=== PATIENT | female | born 1960 | race Caucasian/White ===

== ENCOUNTER 2019-02-09 17:10 | Inpatient (IN) ==
[2019-02-09] MEDS ORDERED: NS 1,000 ML IV ONE (18:13)
[2019-02-09] MEDS ORDERED: ZOFRAN IV ONE (18:13)
[2019-02-09 18:34] LABS: BASO# 0.02 X1000 (0.0-0.2); BASO% 0.2 % (0.0-0.8); EOS# 0.09 X1000 (0.0-0.7); EOS% 0.8 % (0.0-10.0); HEMATOCRIT 45.7 % (37.0-47.0); HEMOGLOBIN 14.9 g/dL (12.0-16.0); LYMPH# 2.12 X1000 (1.2-3.4); LYMPH% 18.8 % (20.5-51.1); MCH 30.9 PG (27-31); MCHC 32.6 g/dL (33-37); MCV 94.8 FL (81-99); MONO# 0.78 X1000 (0.11-0.59); MONO% 6.9 % (1.7-9.3); MPV 9.4 FL (7.4-10.4); NEUT# 8.25 X1000 (1.4-6.5); NEUT% 73.3 % (42.2-75.2); PLT 361 X1000 (130-400); RBC 4.82 XMIL (4.2-5.4); RDW 13.7 % (11.5-14.5); WBC 11.26 X1000 (4.8-10.8)
[2019-02-09 18:49] LABS: AGAP 18; ALB/GLOB RATIO 1.7; ALBUMIN 4.3 g/dL (3.5-5.0); ALKALINE PHOSPHATASE 55 U/L (32-104); BUN 19 mg/dL (8-22); CALCIUM 9.7 mg/dL (8.8-10.2); CHLORIDE 93 mmol/L (98-107); COSMO 272; CREATININE 0.9 mg/dL (0.5-0.9); ESTIMATED GFR > 60; GLUCOSE 131 mg/dL (70-104); GOT 19 U/L (10-30); GPT 15 U/L (10-36); LIPASE 17 U/L (13-60); POTASSIUM 3.9 mmol/L (3.5-5.1); SODIUM 134 mmol/L (136-145); TCO2 23 mmol/L (25-35); TOTAL BILIRUBIN 0.47 mg/dL (0.20-1.00); TOTAL PROTEIN 6.8 g/dL (6.3-8.3)
--- NOTE | 2019-02-09 19:03 | PROVIDER DOCUMENTATION ---
This chart was entered by Alee Patrick Scribe, acting as scribe for Jacki Dickey MD. HPI-Abdominal Pain/GI Problem - General Source: patient - History of Present Illness-ABD Nature of Presenting Problems: 59 yowf presents w/ to er w/cc nvd, cramping abd pain, diaphoresis, and poor appetite x 3 days. pt had 1 episode of diarrhea today but has had multiple vomiting episodes since becoming worse last night w/yellow emesis and cannot keep food down. pt ate eggs this am and vomited. pt became dizzy/lightheaded last night. pt denies urinary symptoms and fever. sts pt has hx of sx at [facility] and had 40% of stomach removed. 2 sx in [place] w/Dr. Zambrano- exploratory sx to remove scar tissue from prev sx around small intestine and gall bladder removal recently in Jan. no hx of dm or htn. Abdominal Pain Onset Location: reports: RUQ, LUQ Pain Radiation: reports: no radiation Quality of Pain: reports: cramping Severity in ED: reports: mild Onset/Duration: reports: 3 days ago Timing: reports: still present Activities at Onset: reports: none Modifying Factors: improves with: eating (worsens) Associated Symptoms: reports: diarrhea (x1), nausea, vomiting. denies: fever/chills, genitourinary problems Dark Stools Present?: reports: none noticed Rectal Bleeding: reports: none Emesis Description: reports: other (yellow) Bruising or Bleeding Gums?: No <Jacki Dickey - Last Filed: 02/09/19 19:03> <Reynaldo Alexander - Last Filed: 02/09/19 21:21> - General Chief Complaint: Vomiting Stated Complaint: VOMITING Time Seen by Provider: 02/09/19 17:59 Allergies/Adverse Reactions: Patient Allergies Allergy/AdvReac Type Severity Reaction Status Date / Time No Known Allergies Allergy Verified 11/24/18 10:43 Home Medications: Home Medication List Medication Instructions Recorded Confirmed Last Taken Type Celecoxib 200 mg PO DAILY 09/04/17 02/09/19 11/23/18 History Desvenlafaxine E.r. [Pristiq ER] 100 mg PO DAILY 09/04/17 02/09/19 11/23/18 History Gabapentin 600 mg PO TID 09/04/17 02/09/19 11/23/18 History Topiramate 100 mg PO BID 09/04/17 02/09/19 11/23/18 History Levothyroxine [Synthroid] 100 microgm PO DAILY 09/17/18 02/09/19 11/23/18 History Fanshawe Carbonate 300 mg PO QHS 09/17/18 02/09/19 11/23/18 History Oxycodone HCl/Acetaminophen 1 ea PO Q6H PRN 09/17/18 02/09/19 11/23/18 History [Oxycodon-Acetaminophen 7.5-325] Quetiapine Fumarate 100 mg PO QHS PRN 09/17/18 02/09/19 11/23/18 History Trazodone [Desyrel] 100 mg PO QHS PRN 09/17/18 02/09/19 11/23/18 History Review of Systems - Adult - REVIEW OF SYSTEMS - ADULT Constitutional: reports: no symptoms reported. denies: chills, fever, fatique Eyes: reports: no symptoms reported Ears, Nose, Mouth & Throat: reports: no symptoms reported Cardiovascular: reports: no symptoms reported Respiratory: reports: no symptoms reported Gastrointestinal: reports: see HPI, abdominal pain, diarrhea, nausea, poor appetite, vomiting. denies: difficulty swallowing, frequent heartburn, rectal bleeding Genitourinary: reports: no symptoms reported. denies: dysuria, discharge, flank pain, hematuria Musculoskeletal: reports: no symptoms reported Integumentary: reports: no symptoms reported Neurological: reports: see HPI, dizziness/vertigo. denies: loss of balance, syncope, tremors Psychiatric: reports: no symptoms reported Endocrine: reports: see HPI, excessive sweating. denies: change in skin pigment, goiter, cold intolerance Hematologic/Lymphatic: reports: no symptoms reported Allergic/Immunologic: reports: no symptoms reported All Other Systems: Reviewed and Negative <Jacki Dickey - Last Filed: 02/09/19 19:03> Past History - Adult - PAST MEDICAL HISTORY-ADULT Review of Records: reports: Nursing Assessment Review, Medications Reviewed, Social history reviewed & non-contributory. Major Childhood Illnesses: reports: denies history Cardiovascular: reports: denies history Respiratory: reports: denies history Gastrointestinal: reports: denies history Obstetrical/Gynecological: reports: denies history Genitourinary: reports: denies history Musculoskeletal: reports: denies history Neurological: reports: denies history Endocrine/Immune: reports: thyroid disorder Other Conditions: reports: denies history - PRIOR SURGERIES/PROCEDURES Surgical/Procedure History: reports: recent surgery, cholecystectomy, bowel surgery, back/neck, other (abdominal sx 40% pylorus removed) - IMMUNIZATION STATUS Childhood Immunizations: See Nurse Assessment Flu Vaccine: See Nurse Assessment - FAMILY HISTORY Family History: reviewed, not pertinent - SOCIAL HISTORY Smoking: other (former smoker) Substance Use: none/never <Keli,Aslam A. - Last Filed: 02/09/19 19:03> Physical Exam-General - PHYSICAL EXAM-ADULT Initial Vital Signs Reviewed: Yes - CONSTITUTIONAL General Appearance: alert, no apparent distress. negative: lethargic, slow to respond, obtunded - EYES Eyes: PERRL/EOMI, pink conjunctivae - HEAD, EARS, NOSE, MOUTH & THROAT HENMT: normocephalic/atraumatic, moist mucous membranes, normal ENT inspection - NECK Neck: non-tender, full range of motion, supple, normal inspection - RESPIRATORY Respiratory: chest non-tender, lungs clear, normal breath sounds - CARDIOVASCULAR Cardiovascular: normal peripheral pulses, regular rate, rhythm - GASTROINTESTINAL (ABDOMEN) Abdominal Exam: soft, no organomegaly, no pulsatile mass, abnormal bowel sounds (increased bowel sounds), guarding (gen abd especially in LUQ, RUQ), tenderness (general diffuse abd to palp). negative: normal bowel sounds, non tender, distended, rigid, rebound - LYMPHATIC Lymphatic: no adenopathy - MUSCULOSKELETAL Back Exam: normal inspection, no CVA tenderness, no vertebral tenderness Extremity: normal range of motion, non-tender, normal inspection Peripheral Pulses: radial (R): 2+, radial (L): 2+ - SKIN Integumentary: normal color, normal turgor, warm/dry. negative: diaphoresis - NEUROLOGIC Neurologic: grossly normal, no motor/sensory deficits - PSYCHIATRIC Psych/Mental Status: normal mood/affect, normal thought content, normal thought process, oriented x 3 <Keli,Aslam A. - Last Filed: 02/09/19 19:03> Progress - PLAN OF CARE/RESULTS Progress/Plan/Lab Results: Vital Signs - 8 hr 11/02/19 17:18 Temperature 97.9 F Pulse Rate 103 H Respiratory Rate 18 Blood Pressure 120/78 O2 Sat by Pulse Oximetry 95 Orders Category Date Time Status Saline Loc DIRECTED Care 02/09/19 18:11 Active NPO Diet 02/09/19 18:[address] ABD/PELVIS W/PO AND IV CON [CT] Stat Exams 02/09/19 18:11 Ordered CBC WITH ELECTRONIC DIFF [HEME] Stat Lab 02/09/19 18:11 Uncollected COMPREHENSIVE METABOLIC PANEL [CHEM] Stat Lab 02/09/19 18:11 Uncollected LIPASE [CHEM] Stat Lab 02/09/19 18:11 Uncollected URINALYSIS W/POSS RFLX CULT [URINALYSIS] Stat Lab 02/09/19 18:11 Uncollected Result Diagrams: 02/09/19 17:43 02/09/19 17:43 - CHANGE OF SHIFT REPORT (ED Provider) 1 Report Given and Care Transferred to:: Dr. Shelton Time of Transfer: 19:00 Items Pending: CT/MRI Results, Physician Consult/Arrival <Jacki Dickey - Last Filed: 02/09/19 19:03> - PLAN OF CARE/RESULTS Progress/Plan/Lab Results: Vital Signs - 8 hr 02/09/19 17:18 02/09/19 17:35 02/09/19 18:11 Temperature 97.9 F Pulse Rate 103 H Respiratory Rate 18 Blood Pressure 120/78 112/82 126/86 O2 Sat by Pulse Oximetry 95 95 95 Laboratory Results - last 24 hr 02/09/19 02/09/19 17:43 17:43 WBC 11.26 H RBC 4.82 Hgb 14.9 Hct 45.7 MCV 94.8 MCH 30.9 MCHC 32.6 L RDW Std Deviation 13.7 Plt Count 361 MPV 9.4 Immature Gran % (Auto) 0.0 Neut % (Auto) 73.3 Lymph % (Auto) 18.8 L Finney % (Auto) 6.9 Eos % (Auto) 0.8 Baso % (Auto) 0.2 Immature Gran # (Auto) 0.00 Neut # (Auto) 8.25 H Lymph # (Auto) 2.12 Finney # (Auto) 0.78 H Eos # (Auto) 0.09 Baso # (Auto) 0.02 Sodium 134 L Potassium 3.9 Chloride 93 L Carbon Dioxide 23 L Anion Gap 18 BUN 19 Creatinine 0.9 Estimated GFR/1.73 m2 > 60 BUN/Creatinine Ratio 21 Glucose 131 H Calculated Osmolality 272 Calcium 9.7 Total Bilirubin 0.47 AST 19 ALT 15 Alkaline Phosphatase 55 Total Protein 6.8 Albumin 4.3 Globulin 2.5 Albumin/Globulin Ratio 1.7 Lipase 17 Orders Category Date Time Status Saline Loc DIRECTED Care 02/09/19 18:11 Active NPO Diet 02/09/19 18:[address] ABD/PELVIS W/PO AND IV CON [CT] Stat Exams 02/09/19 18:11 Completed CBC WITH ELECTRONIC DIFF [HEME] Stat Lab 02/09/19 17:43 Completed COMPREHENSIVE METABOLIC PANEL [CHEM] Stat Lab 02/09/19 17:43 Completed LIPASE [CHEM] Stat Lab 02/09/19 17:43 Completed URINALYSIS W/POSS RFLX CULT [URINALYSIS] Stat Lab 02/09/19 18:11 Uncollected 0.9% Sodium Chloride Inj [Ns] 1,000 ml Med 02/09/19 18:13 Discontinued IV 999 mls/hr Ondansetron [Zofran] Med 02/09/19 18:13 Discontinued 4 mg IV NOW ONE Promethazine [Phenergan] Med 02/09/19 19:44 Discontinued 12.5 mg IV NOW ONE Sodium Chloride 0.9% Med 02/09/19 19:44 Discontinued 10 ml INJ NOW ONE Result Diagrams: 02/09/19 17:43 02/09/19 17:43 - CONSULTS/PCP/HOSPITALIST Notification #1 *Consult/PCP/Hospitalist*: Dr. Uriostegui Time Discussed: 21:20 Consult Disposition: Will see in ED - CHANGE OF SHIFT REPORT (ED Provider) 1 Report Given and Care Transferred to:: Dr. Alexander <Reyanldo Alexander - Last Filed: 02/09/19 21:21> Departure - Critical Care Note This patient required my direct & personal management of CC.: No <Jacki Dickey - Last Filed: 02/09/19 19:03> - Departure Date of Disposition Decision: 02/09/19 Time of Disposition Decision: 21:20 Certified Medical Emergency: Emergent - Critical Care Note This patient required my direct & personal management of CC.: No <Reynaldo Alexander - Last Filed: 02/09/19 21:21> - Departure DIAGNOSIS: Small bowel obstruction Disposition: ADMITTED INPATIENT 09 Condition: Stable Referrals and Follow-Ups: Carly Ware CRNP [Primary Care Provider] - Attestation - Physician/ MIHIR Attestation Patient care was provided by Advanced Practice Provider:: No The physician spent face to face time with patient:: Yes Advanced Practice Provider documentation review:: Supervising physician onsite and consulted in the evaluation and care of this patient. The physician did have a face to face encounter with the patient. <Jacki Dickey - Last Filed: 02/09/19 19:03> - Physician/ MIHIR Attestation Patient care was provided by Advanced Practice Provider:: No The physician spent face to face time with patient:: Yes Advanced Practice Provider documentation review:: Supervising physician onsite and consulted in the evaluation and care of this patient. The physician did have a face to face encounter with the patient. <Reynaldo Alexander - Last Filed: 02/09/19 21:21> This chart was documented by the indicated scribe, (Alee Patrick Scribe) and accurately reflects the services I performed and decisions made by me, Jacki Dickey MD, as attested by the provider's signature.
[2019-02-09] MEDS ORDERED: SODIUM CHLORIDE 0.9% INJ ONE (19:44)
[2019-02-09] MEDS ORDERED: PHENERGAN IV ONE (19:44)
--- NOTE | 2019-02-09 20:08 | Diag Imaging Result Doc PS360 ---
EXAM: CT ABD/PELVIS W/PO AND IV CON - 02/09/2019 HISTORY: abd pain, hx of SBO/adhesions TECHNIQUE: CT abdomen/pelvis with oral and intravenous contrast COMPARISON: 11/24/2018 FINDINGS: The visualized lung bases appear clear except for slight dependent atelectasis. There are no substantial abnormalities of the liver, spleen, adrenal glands, or pancreas identified. The gallbladder surgically absent. The bilateral kidneys enhance homogeneously. There is no hydronephrosis. There are no substantially enlarged lymph nodes identified. There is dilatation of proximal small bowel up to 5 cm. The distal small bowel is nondistended. There are postsurgical changes in small bowel at the right lower quadrant, which appears represent the transition point. There is passage of oral contrast through this area into the nondistended distal small bowel, however. There is a large amount retained fecal debris in the colon. There is no evidence of diverticulitis. There is no free air or abscess identified. There is a small amount of free fluid in the pelvis. IMPRESSION: Apparent partial small bowel obstruction with dilated proximal small bowel. There is possible transition in the area of previous surgery at the right lower quadrant. There is passage of oral contrast through this area into the nondistended distal small bowel. Substantial constipation. No abscess. No free air. Small amount of free fluid in pelvis. This exam was performed using automated exposure control, adjustment of mA or kV according to patient size, and/or use of iterative reconstruction technique. Electronically signed by Abe Post 02/09/2019 8:06 PM
[2019-02-09 21:34] LABS: URINE SOURCE CLEAN CATCH
[2019-02-09 21:37] LABS: BILIRUBIN URINE NEGATIVE (NEGATIVE); BLOOD URINE NEGATIVE (NEGATIVE); COLOR STRAW; GLUCOSE URINE NEGATIVE (NEGATIVE); KETONE URINE NEGATIVE (NEGATIVE); LEUKOCYTES URINE NEGATIVE (NEGATIVE); NITRITE URINE NEGATIVE (NEGATIVE); PROTEIN URINE NEGATIVE (NEGATIVE); SP GRAVITY URINE 1.037; TURBIDITY URINE CLEAR (CLEAR); UROBILINOGEN URINE NORMAL (NORMAL)
[2019-02-09 21:38] LABS: UR EPITHELIAL CELLS <10 /HPF (<10); URINE BACTERIA NEGATIVE /HPF; URINE RBC <10 /HPF (<10); URINE WBC <10 /HPF (<10)
[2019-02-10] MEDS ORDERED: SEROQUEL PO PRN (00:30)
[2019-02-10] MEDS: PROTONIX IV SCH ×2 (00:40→23:05)
[2019-02-10] MEDS: NS 1,000 ML IV SCH ×2 (00:40→14:05)
--- NOTE | 2019-02-10 01:22 | HISTORY AND PHYSICAL ---
CHIEF COMPLAINT: Nausea, vomiting for about 3 days. HISTORY OF PRESENT ILLNESS: Ms Sonam Mojica is a 59-year-old female who has a history of hypothyroidism, depression, anxiety disorder, bipolar disorder. She presents to the hospital because of nausea, vomiting for about 3 days, along with abdominal pain. This is localized in the epigastric area. No diarrhea. She had a CT of the abdomen and pelvis done at time of her presentation, which showed evidence of apparent partial small-bowel obstruction with dilated proximal small bowel. There is a possible transition in the area of a previous surgery of the right lower quadrant. The patient was seen and evaluated in the ER and she will now be admitted to the floor for further management. The patient did have exploratory laparotomy, with lysis of adhesions, along with small-bowel resection with stapled [id number] functional end-to-end anastomosis. This was done in August 2017 and the indication was that of a bowel obstruction. The patient also had reduction and repair of internal hernia with volvulus during that encounter. PAST MEDICAL HISTORY: 1. Patient has a history of constipation. 2. Pyloric stenosis. 3. Hypothyroidism. 4. Depression. 5. Anxiety disorder. 6. Bipolar disorder. 7. History of rectal prolapse. PAST SURGICAL HISTORY: 1. Partial gastrectomy for pyloric stenosis. 2. Hysterectomy. 3. Bilateral tubal ligation. 4. Unspecified transabdominal surgery for rectal polyps. 5. Previous breast augmentation. 6. The patient also had exploratory laparotomy done for bowel obstruction in 2017. SOCIAL HISTORY: No history of cigarette smoking. No alcohol or drug use. ALLERGIES: No known drug allergies. FAMILY HISTORY: Noncontributory. MEDICATIONS: 1. Celebrex 200 mg p.o. once a day. 2. Pristiq 100 mg p.o. daily. 3. Gabapentin 600 mg p.o. 3 times a day. 4. Topamax 100 mg p.o. twice a day. 5. Levothyroxine 100 mcg p.o. daily. 6. [place] 300 mg p.o. at bedtime. 7. Oxycodone/acetaminophen 1 p.o. q.6 hours p.r.n. 8. Seroquel 100 mg p.o. at bedtime. 9. Trazodone 100 mg p.o. at bedtime. REVIEW OF SYSTEMS: Constitutional: Question no fevers. Eyes: No blurred vision. [employer] CH[employer]F: Has headaches. ENT: No sinus problems. No hearing loss. Cardiovascular: No chest pain. Respiratory: No cough. Genitourinary: No dysuria. Psychiatric: She has anxiety with depression. Dermatology: No skin lesions. Hematology: No bleeding problems. Musculoskeletal: Has back pain. Endocrinology: Has thyroid disease. Allergic/Immunologic: No symptoms suggestive of allergic rhinitis. PHYSICAL EXAMINATION: VITAL SIGNS: On admission, Temperature 97.6 degrees, pulse 103, respiratory rate is 18, blood pressure 120/78, oxygen saturation is 95%. HEENT: Patient is atraumatic, normocephalic. She is anicteric. Extraocular movements intact. No oral lesions noted. NECK: No lymphadenopathy or thyromegaly. CARDIOVASCULAR: S1, S2. RESPIRATORY SYSTEM: Has evidence of good air entry bilaterally. ABDOMEN: Soft. She does have some tenderness in the epigastric area. No masses felt. EXTREMITIES: No evidence of edema. CENTRAL NERVOUS SYSTEM: No obvious focal deficit noted. LABORATORY DATA: WBC 11.26, hematocrit is 45.7, with a platelet count of 361,000. Sodium is 134, potassium is 3.9, chloride is 93, bicarb is 20, BUN is 19, creatinine 0.9. Glucose 131. CT scan of the abdomen and pelvis shows evidence of apparent partial small-bowel obstruction with dilated proximal small bowel. ASSESSMENT AND PLAN: 1. Partial small-bowel obstruction. Maintain patient NPO as well as IV fluids. Repeat abdominal imaging in the morning. Consult with Surgery. 2. Hypothyroidism. Check thyroid function test. Continue levothyroxine. 3. History of anxiety and depression as well as bipolar disorder. Continue with psychiatric medications. Check lithium level. 4. Deep vein thrombosis prophylaxis. Sequential compression devices. 5. Gastrointestinal prophylaxis. Proton pump inhibitor. cc: Phillip Uriostegui MD
[2019-02-10] MEDS: SYNTHROID PO SCH (06:14)
--- NOTE | 2019-02-10 07:29 | GENERAL SURGERY CONSULTATION ---
DATE: 02/10/2019 REQUESTING PHYSICIAN: The hospitalist. REASON FOR CONSULTATION: Bowel obstruction. HISTORY OF PRESENT ILLNESS: A 59-year-old female, well known to me, who had a history of nausea and vomiting for several days prior to presentation. She was seen in the emergency department, had a CT scan that showed potential for bowel obstruction. Since admission, she is feeling better, and is wanting to try some liquids. She has had a bowel movement, passed gas, and is not hurting like she was. PAST MEDICAL HISTORY: Includes: 1. History of constipation. 2. Pyloric stenosis. 3. Hypothyroidism. 4. Depression. 5. Anxiety disorder. 6. Bipolar disorder. 7. History of rectal prolapse. PAST SURGICAL HISTORY: Includes: 1. Partial gastrectomy for pyloric stenosis. 2. Hysterectomy. 3. Bilateral tubal ligation. 4. Exploratory laparotomy. 5. Cholecystectomy. SOCIAL HISTORY: Denies alcohol, tobacco, or illicit drugs. ALLERGIES: None. HOME MEDICATIONS: Full list reviewed. FAMILY HISTORY: Reviewed with the patient and noncontributory. REVIEW OF SYSTEMS: Full 14 systems were reviewed and negative, except those specified in the HPI. PHYSICAL EXAMINATION: Vital Signs: The patient is currently afebrile. Her vital signs are stable. General: No acute distress. Alert, interactive, female who looks stated age. HEENT: Normocephalic, atraumatic. Pupils equal, round, reactive to light. Mucous membranes moist. Oropharynx benign. Neck: Supple. Trachea midline. Cardiovascular: Regular rate and rhythm. Lungs: Grossly clear. Abdomen: Soft, nontender, nondistended. Extremities: Moves all extremities. Neurologic: Grossly intact. Skin: No signs of jaundice. Vascular: All extremities perfused. IMAGING AND LABORATORY DATA: Laboratory reviewed. White blood cell count slightly elevated. Remainder of labs reviewed. CT scan independently reviewed, and radiology report reviewed. ASSESSMENT AND PLAN: A 59-year-old female with bowel obstruction. Bowel obstruction. At this time, will try to manage her nonoperatively. I think she is already improving. Will put her on a clear liquid diet, and see how she does. She is already feeling better. cc: Manan Zambrano MD
[2019-02-10 08:07] LABS: BASO# 0.02 X1000 (0.0-0.2); BASO% 0.3 % (0.0-0.8); EOS# 0.11 X1000 (0.0-0.7); EOS% 1.5 % (0.0-10.0); HEMATOCRIT 38.6 % (37.0-47.0); HEMOGLOBIN 12.1 g/dL (12.0-16.0); LYMPH% 37.7 % (20.5-51.1); MCH 30.8 PG (27-31); MCHC 31.3 g/dL (33-37); MCV 98.2 FL (81-99); MONO# 0.59 X1000 (0.11-0.59); MONO% 8.2 % (1.7-9.3); NEUT# 3.75 X1000 (1.4-6.5); NEUT% 52.3 % (42.2-75.2); PLT 297 X1000 (130-400); RBC 3.93 XMIL (4.2-5.4); RDW 13.7 % (11.5-14.5); WBC 7.17 X1000 (4.8-10.8)
[2019-02-10 08:21] LABS: AGAP 12; ALB/GLOB RATIO 1.4; ALBUMIN 3.3 g/dL (3.5-5.0); ALKALINE PHOSPHATASE 45 U/L (32-104); BUN 11 mg/dL (8-22); CALCIUM 8.6 mg/dL (8.8-10.2); CHLORIDE 104 mmol/L (98-107); COSMO 281; CREATININE 0.7 mg/dL (0.5-0.9); ESTIMATED GFR > 60; GLUCOSE 100 mg/dL (70-104); GOT 16 U/L (10-30); GPT 12 U/L (10-36); POTASSIUM 3.6 mmol/L (3.5-5.1); SODIUM 141 mmol/L (136-145); TCO2 25 mmol/L (25-35); TOTAL BILIRUBIN 0.46 mg/dL (0.20-1.00); TOTAL PROTEIN 5.6 g/dL (6.3-8.3)
--- NOTE | 2019-02-10 08:21 | Diag Imaging Result Doc PS360 ---
EXAM: ABDOMEN FLAT/UPRIGHT 02/10/2019 HISTORY: sbo TECHNIQUE: Flat and upright abdomen COMMENT: There is a large amount of stool present in the colon particularly in the descending colon. There are some distended gas-filled small bowel loops in the left upper quadrant and midabdomen with air-fluid levels. There are numerous staple lines in the upper abdomen particularly in the left upper quadrant. Compared to 09/06/2017 the quantity of stool in the colon is much greater. Gaseous dilatation of small bowel loops was present at that time. IMPRESSION: The possibility of partial small bowel obstruction cannot be excluded. This may be exacerbated by constipation, which appears to be chronic as it was present at the time the CT of 11/24/2018 as well as the more recent study on 02/09/2019. Electronically signed by Ry Judd 02/10/2019 8:19 AM
[2019-02-10 08:44] LABS: FREE T4 1.03 ng/dL (0.93-1.70); TSH 0.49 uIUmL (0.27-4.20)
[2019-02-10] MEDS: NEURONTIN PO SCH ×3 (10:21→18:25)
[2019-02-10] MEDS: TOPAMAX PO SCH ×2 (10:22→21:01)
[2019-02-10] MEDS: ZOFRAN IV PRN (10:23)
[2019-02-10] MEDS: PRISTIQ ER PO SCH (10:54)
[2019-02-10] MEDS ORDERED: MORPHINE IV PRN (11:49)
--- NOTE | 2019-02-10 16:44 | PROGRESS NOTE ---
DATE: 02/10/2019 SUBJECTIVE: Patient reports still having what looks like diarrhea and mild abdominal cramping as well. OBJECTIVE: Vital Signs: Temperature 98.2 degrees, heart rate 84, respiratory rate 18, blood pressure 110/66, O2 saturation 97% on room air. General Examination: This is a 59-year-old female lying in bed, in no acute distress. Cardiovascular: S1, S2 heard. No murmurs, gallops, or rubs. Regular rate and rhythm. Respiratory: Clear bilaterally to auscultation. No work of breathing or using accessory muscles. Abdomen: Soft. Abdomen a little bit tender in the epigastric area. Bowel sounds present. No organomegaly. Extremities: No clubbing, cyanosis, or edema. Peripheral pulses present in both legs. Neurological: Patient alert oriented x3. Moves four extremities. LABORATORY DATA: Reviewed. ASSESSMENT AND PLAN: 1. Partial small bowel obstruction. The patient is feeling better. The patient has been evaluated by General Surgery. They are okay to placing this patient on clear liquid diet. They do not think she is going to need any surgical approach at this time. 2. Hypothyroidism. Will continue home medications. 3. History of anxiety and depression and bipolar disorder. The patient will continue with psychiatric medications. 4. Disposition. We will check another x-ray tomorrow and if everything looks good patient can be discharged if she is tolerating diet. cc: Gerardo Aguila MD
[2019-02-10] MEDS: LITHIUM CARBONATE PO SCH (21:01)
[2019-02-10] MEDS: DESYREL PO PRN (21:01)
[2019-02-10] MEDS: SODIUM CHLORIDE 0.9% INJ SCH (23:05)
[2019-02-11] MEDS: NS 1,000 ML IV SCH ×2 (04:21→16:39)
[2019-02-11] MEDS: SYNTHROID PO SCH (06:39)
[2019-02-11 07:34] LABS: BASO# 0.02 X1000 (0.0-0.2); BASO% 0.4 % (0.0-0.8); EOS# 0.09 X1000 (0.0-0.7); EOS% 1.7 % (0.0-10.0); HEMATOCRIT 39.2 % (37.0-47.0); HEMOGLOBIN 12.3 g/dL (12.0-16.0); LYMPH# 1.55 X1000 (1.2-3.4); LYMPH% 29.1 % (20.5-51.1); MCH 30.9 PG (27-31); MCHC 31.4 g/dL (33-37); MCV 98.5 FL (81-99); MONO# 0.34 X1000 (0.11-0.59); MONO% 6.4 % (1.7-9.3); MPV 9.2 FL (7.4-10.4); NEUT# 3.32 X1000 (1.4-6.5); NEUT% 62.4 % (42.2-75.2); PLT 262 X1000 (130-400); RBC 3.98 XMIL (4.2-5.4); RDW 13.2 % (11.5-14.5); WBC 5.32 X1000 (4.8-10.8)
[2019-02-11 07:55] LABS: AGAP 15; BUN 9 mg/dL (8-22); CALCIUM 8.2 mg/dL (8.8-10.2); CHLORIDE 108 mmol/L (98-107); COSMO 282; CREATININE 0.7 mg/dL (0.5-0.9); ESTIMATED GFR > 60; GLUCOSE 76 mg/dL (70-104); POTASSIUM 3.7 mmol/L (3.5-5.1); SODIUM 143 mmol/L (136-145); TCO2 20 mmol/L (25-35)
--- NOTE | 2019-02-11 08:01 | GENERAL SURGERY PROGRESS NOTE ---
DATE: 02/11/2019 SUBJECTIVE: Patient is doing okay. She said she had diarrhea with her clear liquid diet, but did not report any nausea. OBJECTIVE: Vital Signs: Patient is currently afebrile. Her vital are signs stable. General: No acute distress. HEENT: Normocephalic, atraumatic. Pupils equal, round, and react to light. Mucous membranes moist. Oropharynx benign. Neck: Supple. Trachea midline. Cardiovascular: Regular rate and rhythm. Lungs: Grossly clear. Abdomen: Soft, nontender, and nondistended. Extremities: Moves all extremities. Neurologic: Grossly intact. Skin: No signs of jaundice. Vascular: All extremities perfused. LABORATORY: Reviewed from yesterday. Abdominal film yesterday was more consistent with constipation. ASSESSMENT AND PLAN: A 59-year-old female with partial bowel obstruction. At this time, she is having bowel movements, and she seemed to tolerate her liquids, although her most pressing issue with it was that she had diarrhea. We will try to put her on a GI soft diet to see if more bulk slows down things, but I think some of her main issues may be constipation so may need to get Gastroenterology involved again to evaluate for her consistent bowel regimen. We will continue to follow. cc: Manan Zambrano MD
[2019-02-11] MEDS: PRISTIQ ER PO SCH (09:44)
[2019-02-11] MEDS: NEURONTIN PO SCH ×3 (09:44→20:36)
[2019-02-11] MEDS: TOPAMAX PO SCH ×2 (09:44→20:36)
[2019-02-11] MEDS: ZOFRAN IV PRN ×2 (16:39→21:22)
[2019-02-11] MEDS ORDERED: PHENERGAN IV ONE (18:13)
[2019-02-11] MEDS ORDERED: SODIUM CHLORIDE 0.9% INJ ONE (18:13)
[2019-02-11] MEDS ORDERED: SODIUM CHLORIDE 0.9% INJ PRN (18:13)
--- NOTE | 2019-02-11 18:38 | PROGRESS NOTE ---
DATE: 02/11/2019 SUBJECTIVE: Patient has multiple complaints. She has abdominal pain. She has nausea. She has abdominal distention. I asked her 3 times if she had diarrhea, which is what is documented in Dr. Zambrano's note, but she says she does not. She has not had any diarrhea. She had diarrhea yesterday, but not today. Today, it is no bowel movement and more distention and more discomfort. I discussed with her about her pain level, but in any case. OBJECTIVE: 123/68, heart rate 85, respiratory 16, temperature 97.7 degrees.Cardiovascular: Regular rate and rhythm. Pulmonary: Bilateral breath sounds clear to auscultation. GI: Soft, nontender, nondistended. Bowel sounds are positive. PROBLEM LIST: Small bowel obstruction, partial. She seems to be doing okay. She has bowel sounds. She has not had a bowel movement, but that is expected. I have adjusted her medications. I have also encouraged her not to just sit in bed. She is just needs to start getting up and around. She is not actually throwing up and we will repeat plain films and labs tomorrow and reassess about being able to go home or not and at the discretion of surgery, but she is not having more diarrhea at this point, at least this evening when I am seeing her, she is not. cc: Ashish Collins MD
[2019-02-11] MEDS: DILAUDID IV PRN (18:44)
[2019-02-11] MEDS: LITHIUM CARBONATE PO SCH (20:36)
[2019-02-11] MEDS: SODIUM CHLORIDE 0.9% INJ SCH (20:36)
[2019-02-11] MEDS: DESYREL PO PRN (20:36)
[2019-02-11] MEDS: PROTONIX IV SCH (20:36)
[2019-02-11] MEDS: PHENERGAN IV PRN (22:46)
[2019-02-12] MEDS: PROTONIX IV SCH (03:43)
[2019-02-12] MEDS: PHENERGAN IV PRN (04:24)
[2019-02-12] MEDS: NS 1,000 ML IV SCH ×2 (04:26→19:48)
[2019-02-12] MEDS: SYNTHROID PO SCH (06:32)
[2019-02-12 06:56] LABS: BASO# 0.02 X1000 (0.0-0.2); BASO% 0.3 % (0.0-0.8); EOS# 0.08 X1000 (0.0-0.7); EOS% 1.1 % (0.0-10.0); HEMATOCRIT 37.4 % (37.0-47.0); HEMOGLOBIN 11.7 g/dL (12.0-16.0); LYMPH# 1.99 X1000 (1.2-3.4); MCH 30.5 PG (27-31); MCHC 31.3 g/dL (33-37); MCV 97.7 FL (81-99); MONO# 0.49 X1000 (0.11-0.59); MONO% 6.9 % (1.7-9.3); MPV 8.8 FL (7.4-10.4); NEUT# 4.53 X1000 (1.4-6.5); NEUT% 63.7 % (42.2-75.2); PLT 254 X1000 (130-400); RBC 3.83 XMIL (4.2-5.4); RDW 12.9 % (11.5-14.5); WBC 7.11 X1000 (4.8-10.8)
[2019-02-12 07:35] LABS: AGAP 10; BUN 7 mg/dL (8-22); CALCIUM 8.3 mg/dL (8.8-10.2); CHLORIDE 108 mmol/L (98-107); COSMO 285; CREATININE 0.6 mg/dL (0.5-0.9); ESTIMATED GFR > 60; GLUCOSE 95 mg/dL (70-104); POTASSIUM 4.3 mmol/L (3.5-5.1); SODIUM 144 mmol/L (136-145); TCO2 26 mmol/L (25-35)
--- NOTE | 2019-02-12 08:31 | GENERAL SURGERY PROGRESS NOTE ---
DATE: 02/12/2019 SUBJECTIVE: Patient apparently had some emesis last night though I do not see the quantity recorded. She says she has had diarrhea. Her abdominal film from 2 days ago is more of a nonspecific partial bowel obstruction and may be related to constipation. OBJECTIVE: Vital Signs: Patient is currently afebrile. Her vital signs are stable. General: No acute distress. Resting comfortably. HEENT: Normocephalic, atraumatic. Pupils equal, round, react to light. Mucous membranes moist. Oropharynx benign. Neck: Supple. Trachea midline. Cardiovascular: Regular rate and rhythm. Lungs: Grossly clear. Abdomen: Soft, nontender, nondistended. Extremities: Moves all extremities. Neurologic: Grossly intact. Skin: No signs of jaundice. Vascular: All extremities perfused. LABORATORY DATA: None this morning as of yet. ASSESSMENT AND PLAN: A 59-year-old female with partial small-bowel obstruction. Partial small bowel obstruction. At this time, agree with abdominal film for this morning. Would like to see what it shows. May need to consider getting GI involved for chronic constipation. She has seen GI before for this. We may even consider a small-bowel series in the near future. She does not show any signs of improvement. May need even consider starting her on MiraLAX and enemas depending on what her abdominal film this morning shows. cc: Manan Zambrano MD
--- NOTE | 2019-02-12 08:56 | Diag Imaging Result Doc PS360 ---
EXAM: ABDOMEN FLAT/UPRIGHT INDICATION: sbo TECHNIQUE: 2 views COMPARISON: 02/10/2019 FINDINGS: There are gas-distended loops of small bowel in the mid abdomen and left upper quadrant. This is also seen on the previous study. The degree of gaseous distention is probably slightly worse, however. There is still increased stool in the colon. No large volume free abdominal gas is appreciated. The abdomen is stable, otherwise. IMPRESSION: Gaseous distention of small bowel that is probably slightly worse than the previous study. Electronically signed by Aydin Patrick 02/12/2019 8:53 AM
[2019-02-12] MEDS: NEURONTIN PO SCH ×4 (09:39→20:41)
[2019-02-12] MEDS: PRISTIQ ER PO SCH (09:39)
[2019-02-12] MEDS: TOPAMAX PO SCH ×3 (09:40→20:46)
[2019-02-12] MEDS: DILAUDID IV PRN (11:25)
--- NOTE | 2019-02-12 11:50 | PROGRESS NOTE ---
DATE: 02/12/2019 SUBJECTIVE: The patient reports that she had a rough night. She has been vomiting 3 times last night, along with abdominal pain that gets worse every time she tries to eat some liquids. Abdominal cramping is also bad. OBJECTIVE: Vital Signs: Temperature 98.3 degrees, heart rate 92, respiratory rate 16, blood pressure 120/64, O2 saturation 97% on room air. General: This is a 59-year-old female, lying in bed in no acute distress. Cardiovascular: S1, S2 heard. No murmurs, gallops, or rubs. Regular rate and rhythm. Respiratory: Clear bilaterally to auscultation. No work of breathing or using accessory muscles. Abdomen: Soft, mildly tender to palpation in the epigastric area. Bowel sounds are present, but distant. No organomegaly noted. No signs of peritoneal irritation. Extremities: No clubbing, cyanosis, or edema. Peripheral pulses present in both legs. Neurological: The patient is alert and oriented x3. Moves all 4 extremities. LABORATORY DATA: White cell count 7.11, hemoglobin 9.7, hematocrit 37.4, platelets 254,000. Normal BMP, except low calcium of 8.3. ASSESSMENT AND PLAN: 1. Partial small-bowel obstruction. The patient continues to not improve. She reports that every time she eats, she has bad abdominal pain. She has been vomiting recently during the last 24 hours. The x-ray from this morning showed gaseous distention of the small bowel that is probably slightly worsened than the previous study. Dr. Zambrano from General Surgery is following this patient and recommends Gastroenterology evaluation. Will do that. I think at this point, will order a small bowel series. 2. Hypothyroidism. Will continue home medications. 3. History of anxiety and depression and bipolar disorder. Will continue with psychiatric medications. 4. Disposition. At this point, will see what the small bowel series shows, and Gastroenterology input. cc: Gerardo Aguila MD
[2019-02-12] MEDS: BENTYL PO PRN ×2 (12:37→19:47)
[2019-02-12] MEDS: DESYREL PO PRN (19:46)
[2019-02-12] MEDS: SEROQUEL PO SCH ×2 (19:47→20:40)
[2019-02-12] MEDS: LITHIUM CARBONATE PO SCH ×2 (19:52→20:40)
[2019-02-13] MEDS: PROTONIX IV SCH ×2 (00:24→21:43)
--- NOTE | 2019-02-13 01:15 | GASTROENTEROLOGY CONSULTATION ---
DATE: 02/12/2019 REASON FOR CONSULTATION: Constipation, ileus. HISTORY OF PRESENT ILLNESS: Ms. Sonam Mojica is a 59-year-old woman with a past medical history of depression, chronic neck and back pain on opioids, and opioid-induced constipation who presented with 3 days of intractable nausea, vomiting and abdominal pain. The patient reports being in her usual state of health until last Monday when she started having bilious emesis, diffuse abdominal cramping and bloating. She says the pain was "worse than labor." She denies any diarrhea. Her last bowel movement was 5 days ago. She said that she has been getting some enemas and had liquid stool; however, no solid stool. She has not been able to tolerate a diet since she has been here, eating causes her to have more pain. Zofran and Phenergan does not seem to be helping with her nausea. She was given some Bentyl today, which seemed to help a little bit. Surgery has been consulted for evaluation of partial small bowel obstruction. Her last colonoscopy was 10 years ago. At home she has been taking Amitiza twice a day and MiraLAX every other day, which seemed to help to control her constipation. She was last seen in our office in November. REVIEW OF SYSTEMS: As per HPI, otherwise 12 point review of systems is negative. PAST MEDICAL HISTORY: As per HPI. Other history includes history of pyloric stenosis status post modified Ellen-en-Y gastric bypass in 2016, history of hypothyroidism, bipolar disorder. PAST SURGICAL HISTORY: History of rectal prolapse, Ellen-en-Y gastric bypass for pyloric stenosis in 2016, hysterectomy, bilateral tubal ligation, lysis of adhesions, previous breast augmentation. SOCIAL HISTORY: No smoking, alcohol or drug use. ALLERGIES: No known drug allergies. FAMILY HISTORY: No family history of GI malignancies. HOME MEDICATIONS: Include Celebrex, Pristiq, gabapentin, Topamax, levothyroxine, lithium, [place], Seroquel, trazodone, Amitiza, MiraLAX. PHYSICAL EXAMINATION: Vital Signs: Temperature 98.1 degrees, heart rate of 83, respiratory rate 18, blood pressure 114/65, O2 saturation 98% on room air. General: The patient is awake, alert, oriented, no acute distress. HEENT: Sclerae are anicteric. Moist mucous membranes. Extraocular motor intact. Neck: Supple. No JVD or lymphadenopathy. Cardiac: Regular rate and rhythm. No murmurs. Lungs: Clear to auscultation bilaterally. No wheezing. Abdomen: Soft, nontender, nondistended. Normoactive bowel sounds. No rebound or guarding. Extremities: No clubbing, cyanosis or edema. Neurologic: Nonfocal. Rectal: Stool in the vault normal. LABORATORY DATA: White count is 7.1, hemoglobin is 11.7, platelets of 254,000. Sodium is 144, potassium is 4.3, chloride is 108, bicarbonate is 26, BUN is 7, creatinine is 0.6. LFTs from 02/10/2019 were within normal limits. TSH is normal. UA is negative. [place] level is 9.30. IMAGING: CT of the abdomen and pelvis with p.o. and IV contrast on 02/09/2019 showed a partial small bowel obstruction with dilated proximal small bowel and a possible transition in the area of the previous surgery at the right lower quadrant. There is passage of oral contrast in this area into nondistended distal small bowel, substantial constipation. No abscess or free air. A small amount of free fluid in the pelvis. Abdominal x-ray on 02/10/2019 shows partial small-bowel obstruction. This may be exacerbated by "constipation" was 2 which appears to be chronic. KUB today showed gas and distention in the of small bowel that is probably slightly worse than the previous study. ASSESSMENT AND PLAN: Ms. Tonia Mojica is a 59-year-old woman with a history of multiple abdominal surgeries, opioid-induced constipation, who presents with intractable nausea and vomiting in the setting of partial small-bowel obstruction and constipation. A rectal exam today is negative. She has appears to be stable. Her abdomen is benign. Labs are unremarkable except for mild anemia. I recommend getting her MiraLAX twice a day, resume her home Amitiza, minimize narcotics and constipation medications, and getting her rectal enemas with mineral oil enemas twice a day. Continue serial abdominal exams. Surgery is following. # pSBO # Opioid-induced constipation # Anemia Thank you for this consultation. We will follow with you. Please call with any questions or concerns. [facility]
[2019-02-13] MEDS: FLEET MINERAL OIL ENEMA PR ONE ×2 (05:40→06:27)
[2019-02-13] MEDS: SYNTHROID PO SCH ×2 (05:40→06:27)
[2019-02-13] MEDS: NS 1,000 ML IV SCH (05:40)
--- NOTE | 2019-02-13 06:48 | GENERAL SURGERY PROGRESS NOTE ---
DATE: 02/13/2019 SUBJECTIVE: Patient says she is feeling a little bit better. OBJECTIVE: Vital Signs: Patient is currently afebrile. Her vital signs are stable. General: No acute distress. HEENT: Normocephalic, atraumatic. Pupils equal, round, and reactive to light. Mucous membranes moist. Oropharynx benign. Neck: Supple. Trachea midline. Cardiovascular: Regular rhythm. Lungs: Grossly clear. Abdomen: Soft, nontender, nondistended. Extremities: Moves all extremities. Neurologic: Grossly intact. Skin: No signs of jaundice. Vascular: All extremities perfused. LABORATORY: Reviewed from yesterday. ASSESSMENT AND PLAN: A 59-year-old female with a partial small bowel obstruction. Partial small bowel obstruction. At this time, GI is seeing the patient. After discussion with them and the hospitalist, we are going to go with a small bowel series. This may be mostly related to constipation. She seems to be doing okay right now. We will follow up with small- bowel series. She may need to get on a bowel regiment to treat her constipation. cc: Manan Zambrano MD
[2019-02-13 07:57] LABS: BASO# 0.01 X1000 (0.0-0.2); BASO% 0.2 % (0.0-0.8); EOS% 4.4 % (0.0-10.0); HEMATOCRIT 33.7 % (37.0-47.0); HEMOGLOBIN 10.7 g/dL (12.0-16.0); LYMPH# 1.59 X1000 (1.2-3.4); MCH 30.7 PG (27-31); MCHC 31.8 g/dL (33-37); MCV 96.8 FL (81-99); MONO# 0.39 X1000 (0.11-0.59); MONO% 8.6 % (1.7-9.3); MPV 9.2 FL (7.4-10.4); NEUT# 2.35 X1000 (1.4-6.5); NEUT% 51.8 % (42.2-75.2); PLT 221 X1000 (130-400); RBC 3.48 XMIL (4.2-5.4); RDW 12.9 % (11.5-14.5); WBC 4.54 X1000 (4.8-10.8)
[2019-02-13 08:23] LABS: AGAP 5; BUN 6 mg/dL (8-22); CALCIUM 8.4 mg/dL (8.8-10.2); CHLORIDE 112 mmol/L (98-107); COSMO 286; CREATININE 0.6 mg/dL (0.5-0.9); ESTIMATED GFR > 60; GLUCOSE 99 mg/dL (70-104); POTASSIUM 3.2 mmol/L (3.5-5.1); SODIUM 145 mmol/L (136-145); TCO2 28 mmol/L (25-35)
[2019-02-13] MEDS ORDERED: MIRALAX PO SCH (09:00)
[2019-02-13] MEDS: AMITIZA PO SCH ×2 (09:26→21:42)
[2019-02-13] MEDS: NEURONTIN PO SCH ×3 (09:26→21:44)
[2019-02-13] MEDS: TOPAMAX PO SCH ×2 (09:26→21:43)
[2019-02-13] MEDS: PRISTIQ ER PO SCH (09:26)
--- NOTE | 2019-02-13 10:27 | Diag Imaging Result Doc PS360 ---
EXAM: KUB ABDOMEN 02/12/2019 HISTORY: persistent SBO TECHNIQUE: KUB COMMENT: There is a large amount of stool present in the colon on the left side. This extends almost to the rectum. The quantity of stool in the descending colon appears to be increased since 02/12/2019. There are also distended small bowel loops in the right lower quadrant. The dilatation of the small bowel is slightly improved since the previous study. IMPRESSION: Constipation. The possibility of partial small bowel obstruction or ileus cannot be excluded. Electronically signed by Ry Judd 02/13/2019 10:24 AM
[2019-02-13] MEDS ORDERED: GOLYTELY PO ONE (11:09)
[2019-02-13] MEDS ORDERED: BENTYL PO PRN (11:15)
--- NOTE | 2019-02-13 14:43 | PROGRESS NOTE ---
DATE: 02/13/2019 SUBJECTIVE: The patient reports that after having some GoLYTELY that I ordered for this difficult constipation, she had several bowel movements. Abdominal cramping is being treated with Bentyl. OBJECTIVE: Vital Signs: Temperature 98.4 degrees, heart rate 71, respiratory rate 18, blood pressure 121/62, O2 saturation 100% on room air. General: This is a chronically ill-appearing, 59-year-old, female, lying in bed in no acute distress. Cardiovascular: S1, S2 heard. No murmurs, gallops, or rubs. Regular rate and rhythm. Respiratory: Clear bilaterally to auscultation. No work of breathing or using accessory muscles. Abdomen: Soft, a little bit distended, with bowel sounds present. No organomegaly. Extremities: No clubbing, cyanosis, or edema. Peripheral pulses present in both legs. Neurological: The patient is alert and oriented x3. Moves all 4 extremities. LABORATORY DATA: Reviewed. ASSESSMENT AND PLAN: 1. Partial small-bowel obstruction. We have ordered a small bowel series because this patient was not getting better, but because of severe constipation, that exam was withheld. Then, we have ordered GoLYTELY, which made the patient have several bowel movements, and clinically, this patient is doing better. At this point, will advance her diet. Gastroenterology and General Surgery are following this patient. Will follow recommendations. 2. Hypothyroidism. Will continue home medications. 3. History of anxiety, depression, and bipolar disorder. Will continue with psychiatric medication. 4. Disposition. At this point, the patient I think is getting better. Gastroenterology and General Surgery are following this patient. Will send her home one she is cleared by both subspecialties. cc: Gerardo Aguila MD
--- NOTE | 2019-02-13 16:33 | PROVIDER PROGRESS NOTE ---
Progress Note S: Patient had large bowel movement this morning after drinking to cups of golytely. She reports significant improvement in abdominal pain and bloating. No N/V O: Last Vital Signs Temp 98.5 F 02/13/19 14:46 Pulse 92 H 02/13/19 14:46 Resp 17 02/13/19 14:46 BP 123/74 02/13/19 14:46 Pulse Ox 98 02/13/19 14:46 Height 5 ft 7 in Weight 120 lb 3 oz GEN: awake, alert, pleasant, NAD HEENT: anicteric, MMM NECK: supple, no JVD PULM: CTAB CV: RRR, no murmurs ABD: soft NT/ND, NABS EXT: no cce NEURO: nonfocal LABS: 02/13/19 02/13/19 07:20 07:20 WBC 4.54 L Hgb 10.7 L Plt Count 221 Sodium 145 Potassium 3.2 L D Chloride 112 H Carbon Dioxide 28 BUN 6 L Creatinine 0.6 ASSESSMENT AND PLAN: Ms. Tonia Mojica is a 59-year-old woman with a history of multiple abdominal surgeries, opioid-induced constipation, who presents with intractable nausea and vomiting in the setting of partial small-bowel obstruction and constipation, now resolved with restarting home bowel regimen and small amount of Golytely. She is mildly anemia; however, denies any rectal bleeding or melena. # pSBO: resolved # OIC: continue home amitiza and miralax; minimize pain meds # Anemia: recommend outpatient colonoscopy Advance diet as tolerated. Will sign off. Please call with questions
[2019-02-13] MEDS: SODIUM CHLORIDE 0.9% INJ SCH (16:36)
[2019-02-13] MEDS: PHENERGAN IV PRN (16:36)
[2019-02-13] MEDS: SEROQUEL PO SCH ×2 (21:30→21:41)
[2019-02-13] MEDS: LITHIUM CARBONATE PO SCH (21:41)
[2019-02-14] MEDS: PROTONIX IV SCH ×2 (00:06→00:07)
[2019-02-14] MEDS: SYNTHROID PO SCH ×2 (05:06→06:09)
[2019-02-14] MEDS: NS 1,000 ML IV SCH ×2 (05:06→09:33)
[2019-02-14 07:34] VITALS: BP 131/74
[2019-02-14] MEDS: TOPAMAX PO SCH (08:26)
[2019-02-14] MEDS: NEURONTIN PO SCH (08:26)
[2019-02-14] MEDS: PRISTIQ ER PO SCH (08:26)
[2019-02-14] MEDS: AMITIZA PO SCH (08:27)
--- NOTE | 2019-02-14 10:13 | GENERAL SURGERY PROGRESS NOTE ---
DATE: 02/14/2019 SUBJECTIVE: Patient doing better. She was given some GoLYTELY and had significant bowel movements, at least 7 recorded. She says she is feeling a whole lot better. OBJECTIVE: Vital Signs: Patient is currently afebrile. Her vital signs are stable. General: No acute distress. HEENT: Normocephalic, atraumatic. Pupils equal, round, reactive to light. Mucous membranes moist. Oropharynx benign. Neck: Supple, trachea midline. Cardiovascular: Regular rate and rhythm. Lungs: Grossly clear. Abdomen: Soft, nontender, nondistended. Extremities: Moves all extremities. Neurologic: Grossly intact. Skin: No signs of jaundice. Vascular: All extremities perfused. LABORATORY: Reviewed from yesterday. No real major changes. ASSESSMENT AND PLAN: A 59-year-old female with bowel obstruction: 1. Bowel obstruction. At this time I think it is more likely related to constipation. She has been given GoLYTELY and feels better. We will advance her to a GI soft diet and see how she does. 2. We will continue to follow. cc: Manan Zambrano MD
--- NOTE | 2019-02-14 19:11 | GASTROENTEROLOGY PROGRESS NOTE ---
DATE: 02/14/2019 SUBJECTIVE: Patient resting in bed. She has not had any bowel movement today. Yesterday she moved multiple bowel movements after drinking GoLYTELY. She has history of rectal prolapse which was repaired surgically. 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 She denies any nausea or vomiting today. She denies any blood in the stools. OBJECTIVE: Vital signs: Temperature 97.9 degrees, pulse rate of 102, respiratory rate of 16, blood pressure 131/74, saturating 97% on room air. Body weight of 120 pounds 3 ounces. BMI of 18.8 kg/m2. General appearance: Thinly built, lying in bed, in no acute distress. HEENT: Pale conjunctivae. No icterus. Pupils equal, reactive to light. Neck: Supple. Abdomen: Soft. Mild discomfort in the periumbilical region. No rebound or guarding. Extremities: No cyanosis, clubbing. Neurologic: She is alert, awake, oriented. LABS: Hemoglobin and hematocrit are 10.7 and 33.7, white count of 4.54, platelet count of 221,000. Sodium 145, potassium 3.2, chloride of 112, bicarb of 29.5, BUN of 6, creatinine of 0.6, glucose of 99, calcium is 8.4. IMPRESSION AND PLAN: 1. Partial small bowel obstruction is resolved. This is likely secondary to possible scar tissue as she had multiple abdominal surgeries including stomach surgery and rectal prolapse surgery done in the past, but this probably could have been exacerbated with constipation. 2. Opioid induced constipation. She will continue Amitiza 24 mcg twice daily and MiraLAX 17g twice daily. She will need to minimize her opioid medication per the primary care physician. 3. Anemia. She will need an outpatient colonoscopy and possible esophagogastroduodenoscopy. In that regard, she will follow up with us as an outpatient in 4 weeks. 4. History of multiple abdominal surgeries. Aware. 5. Nausea is improved and she denies any vomiting today. She is likely getting discharged today. Will advance the diet as tolerated. 6. She is on gastrointestinal prophylaxis with Protonix once daily. 7. We will sign off at this time. The above plans were discussed with the patient. All questions were answered. Please call us for any further questions or concerns. cc: JhonMD Dr. Nate Salinas CRNP MTDD
--- NOTE | 2019-02-15 12:53 | DISCHARGE SUMMARY ---
ADMISSION DATE: 02/09/2019 DISCHARGE DATE: 02/14/2019 DISCHARGE DIAGNOSIS: 1. Partial small-bowel obstruction, resolved. 2. Severe constipation, resolved. 3. Hypothyroidism. 4. History of anxiety and depression as well as bipolar disorder. CONSULTATIONS: 1. Dr. José Miguel Zambrano from General Surgery. 2. Dr. Iraj Monroe GI. PROCEDURES: 1. CT of abdomen and pelvis done at admission showed apparent partial-small bowel obstruction with dilated proximal small bowel. There is a possible transition in the area of previous surgery at the right lower quadrant. There is passage of oral contrast throughout this area into the nondistended distal small bowel and there is also substantial constipation. No abscess, no free air. 2. Abdominal x-ray done at discharge showed constipation, the possibility of a small-bowel obstruction or ileus cannot be excluded. HOSPITAL COURSE: This is a 59-year-old female with who carries past medical history of hypothyroidism, depression, anxiety disorder and bipolar disorder. She presented to the emergency department because of nausea and vomiting for about [address] of the abdomen showed possible small-bowel obstruction so she was admitted for that reason to the hospital. She was placed for observation, she was placed on IV fluids with IV pain medications as well. Feel x-ray shows that obstruction was getting better. Actually patient start passing gasses so because of the remarkable constipation, patient was given GoLYTELY which made her move several bowel movements. Since then, patient started improving with less abdominal distention. Able to eat, no nausea vomiting, so patient was discharged in stable condition. She was provided a prescription for stool softeners. DISCHARGE PHYSICAL EXAMINATION: Vital signs: Temperature 97.9 degrees, heart rate 102, respiratory 16, blood pressure 131/74, O2 saturation 97% on room air. General: This is a 59- year-old female, lying in bed, in no acute distress. Cardiovascular: S1, S2 heard. No murmurs, gallops, or rubs. Regular rate and rhythm. Respiratory: Clear bilaterally to auscultation. No work of breathing or using accessory muscles. Abdomen: Soft, nontender to palpation. Bowel sounds present. No organomegaly. Extremities: No clubbing, cyanosis, or edema. Peripheral pulses present in both legs. Neurological: The patient is alert and oriented x3. Moves 4 extremities. DISCHARGE DISPOSITION: Home to self-care. FOLLOWUP: With his primary care physician, Carly Ware ICU CLERK, on 02/19/2019 at 10 a.m. HOME MEDICATIONS: 1. Amitiza 24 mcg p.o. b.i.d. 2. Bentyl 10 mg, 1 tablet p.o. every 4 hours as needed for abdominal pain. 3. Lactulose 30 mL twice daily as needed for constipation. 4. Celecoxib 200 mg 1 tablet p.o. daily. 5. Pristiq ER 100 mg 1 tablet p.o. daily. 6. Gabapentin 600 mg tablet p.o. 2 times per day. 7. Topamax 100 mg 1 tablet p.o. b.i.d. 8. Levothyroxine 100 mcg p.o. daily. 9. [place] 300 mg p.o. at bedtime. 10. Percocet 7.5 mg 1 tablet p.o. every 6 hours as needed. 11. Seroquel 50 mg oral tablet p.o. in the morning. 12. Desyrel 100 mg 1 tablet p.o. at bedtime. TIME SPENT: Discharge this time discharging this patient, 36 minutes. cc: Gerardo Aguila MD
== END 2019-02-14 13:07 | disposition home or self-care (01) | DRG 389 ==
LOC: ED 17:10 → SUATTDRO 23:21 → 3N 23:21
PROVIDERS: ATTEND Internal Medicine